=== PATIENT | male | born 1975 | race Two or more races ===

== ENCOUNTER 2021-08-02 03:34 | Inpatient (IN) | payer MEDICAID, OTHER ==
[~2021-08-02] VITALS: Ht 175.3 cm; Wt 88.3 kg
[2021-08-02] MEDS ORDERED: LORazepam 0.5 MG TAB PO ONE (04:45)
[2021-08-02 06:03] LABS: Basophils # (auto) 0.1 10 ^3/uL (0-0.2); Basophils % (auto) 0.8 % (0.0-2.0); Eosinophils # (auto) 0.3 10 ^3/uL (0-0.8); Eosinophils % (auto) 2.6 % (0.0-7.0); Hematocrit 46.4 % (41.0-53.0); Hemoglobin 16.2 g/dL (13.5-17.5); Lymphocytes # (auto) 2.5 10 ^3/uL (0.4-5.4); Lymphocytes % (auto) 21.1 % (10.0-50.0); Mean Corpuscular Hemoglobin 30.6 pg (28.0-32.0); Mean Corpuscular Volume 87.3 fL (80.0-100.0); Monocytes # (auto) 1.2 10 ^3/uL (0-1.3); Monocytes % (auto) 10.7 % (0.0-12.0); Neutrophils # (auto) 7.6 10 ^3/uL (1.6-8.6); Neutrophils % (auto) 64.8 % (37.0-80.0); Red Blood Cells 5.31 10^6/uL (4.5-5.90); Red Cell Distribution Width 14.1 % (11.8-14.3); White Blood Cell 11.7 10^3/uL (4.4-10.8)
[2021-08-02] MEDS ORDERED: ASPirin 81 mg TAB PO ONE ×2 (07:00→08:30)
[2021-08-02 08:00] LABS: Albumin 2.9 g/dL (3.4-5.0); BUN/Creatinine Ratio 12.7; Calcium 8.9 mg/dL (8.5-10.1); Potassium 4.9 mmol/L (3.5-5.1)
[2021-08-02 08:07] LABS: Bilirubin, Total 0.6 mg/dL (0.2-1.0); Total Protein 7.1 g/dL (6.4-8.2)
[2021-08-02] MEDS ORDERED: NITROGLYCERIN 0.4 MG SL TAB SL ONE (09:30)
[2021-08-02] MEDS ORDERED: ACETAMINOPHEN 325 MG TAB PO PRN (11:00)
[2021-08-02] MEDS ORDERED: MORPHINE SULFATE 4 MG/ML SYR/VIAL IV PRN (11:00)
[2021-08-02] MEDS ORDERED: HYDROcodone-ACET 5/325MG TAB PO PRN (11:00)
[2021-08-02] MEDS ORDERED: SODIUM CHLORIDE 0.9% 1,000 ML IV SCH (11:00)
[2021-08-02] MEDS ORDERED: NICOTINE 14 MG/24HR TOPICAL PATCH TD ONE (11:45)
[2021-08-02 12:24] VITALS: BP 124/57
[2021-08-02] MEDS ORDERED: METO25TA93 PO (12:52)
[2021-08-02] MEDS ORDERED: LISI-716 PO (12:52)
[2021-08-02 16:45] VITALS: BP 131/65
[2021-08-02] MEDS: ATORVASTATIN 20 MG TAB PO SCH (21:07)
[2021-08-02] MEDS: CARVEDILOL 3.125 MG TAB PO SCH (21:07)
[2021-08-02 21:53] VITALS: BP 148/90
[2021-08-03 05:00] VITALS: BP 150/94
[2021-08-03 06:19] LABS: Basophils # (auto) 0.1 10 ^3/uL (0-0.2); Basophils % (auto) 0.7 % (0.0-2.0); Eosinophils # (auto) 0.3 10 ^3/uL (0-0.8); Eosinophils % (auto) 2.9 % (0.0-7.0); Hematocrit 50.8 % (41.0-53.0); Hemoglobin 17.1 g/dL (13.5-17.5); Lymphocytes # (auto) 2.4 10 ^3/uL (0.4-5.4); Lymphocytes % (auto) 20.4 % (10.0-50.0); Mean Corpuscular Hemoglobin 29.4 pg (28.0-32.0); Mean Corpuscular Hgb Conc. 33.6 g/dL (32.0-36.0); Mean Corpuscular Volume 87.4 fL (80.0-100.0); Monocytes # (auto) 1.2 10 ^3/uL (0-1.3); Monocytes % (auto) 10.2 % (0.0-12.0); Neutrophils # (auto) 7.8 10 ^3/uL (1.6-8.6); Neutrophils % (auto) 65.8 % (37.0-80.0); Red Blood Cells 5.81 10^6/uL (4.5-5.90); White Blood Cell 11.8 10^3/uL (4.4-10.8)
[2021-08-03 06:39] LABS: Calcium 8.7 mg/dL (8.5-10.1); Potassium 4.6 mmol/L (3.5-5.1)
[2021-08-03 06:45] LABS: Albumin 2.8 g/dL (3.4-5.0); BUN/Creatinine Ratio 10.2; Bilirubin, Total 0.6 mg/dL (0.2-1.0); Total Protein 7.6 g/dL (6.4-8.2)
[2021-08-03 09:00] VITALS: BP 142/100
[2021-08-03] MEDS: ASPirin 81 mg TAB PO SCH (09:49)
[2021-08-03] MEDS: CARVEDILOL 3.125 MG TAB PO SCH (09:49)
[2021-08-03] MEDS: ENOXAPARIN SOD 40 MG/0.4 ML SYRINGE SC SCH (09:52)
[2021-08-03] MEDS ORDERED: LOSARTAN POTASSIUM 25 MG TAB PO SCH (10:00)
[2021-08-03 13:00] VITALS: BP 125/86
[2021-08-03] MEDS ORDERED: FUROSEMIDE 40 MG/4 ML VIAL IV ONE (13:15)
[2021-08-03] MEDS ORDERED: NICOTINE 21MG/24 HR TOPICAL PATCH TD ONE (13:15)
[2021-08-03 17:00] VITALS: BP 128/81
[2021-08-03] MEDS: ATORVASTATIN 20 MG TAB PO SCH (22:25)
[2021-08-03] MEDS: FAMOTIDINE 20 MG TAB PO SCH (22:25)
[2021-08-03] MEDS: CARVEDILOL 12.5 MG TAB PO SCH (22:26)
[2021-08-03 22:55] VITALS: BP 149/96
[2021-08-04 04:53] VITALS: BP 125/87
[2021-08-04 06:45] LABS: Basophils # (auto) 0.1 10 ^3/uL (0-0.2); Basophils % (auto) 1.1 % (0.0-2.0); Eosinophils # (auto) 0.4 10 ^3/uL (0-0.8); Eosinophils % (auto) 3.4 % (0.0-7.0); Hemoglobin 17.6 g/dL (13.5-17.5); Lymphocytes # (auto) 2.3 10 ^3/uL (0.4-5.4); Lymphocytes % (auto) 20.1 % (10.0-50.0); Mean Corpuscular Hemoglobin 29.7 pg (28.0-32.0); Mean Corpuscular Hgb Conc. 34.4 g/dL (32.0-36.0); Mean Corpuscular Volume 86.3 fL (80.0-100.0); Monocytes # (auto) 0.8 10 ^3/uL (0-1.3); Monocytes % (auto) 6.8 % (0.0-12.0); Neutrophils % (auto) 68.6 % (37.0-80.0); Nucleated Red Blood Cells % 0.3 %; Red Blood Cells 5.91 10^6/uL (4.5-5.90); White Blood Cell 11.6 10^3/uL (4.4-10.8)
[2021-08-04 06:55] LABS: INR 1.07 (0.9-1.15)
[2021-08-04 07:00] LABS: Calcium 9.1 mg/dL (8.5-10.1); Magnesium 2.4 mg/dL (1.6-2.6); Potassium 3.6 mmol/L (3.5-5.1)
[2021-08-04 07:34] LABS: BUN/Creatinine Ratio 9.8
[2021-08-04] MEDS: LOSARTAN POTASSIUM 25 MG TAB PO SCH (08:54)
[2021-08-04 09:27] VITALS: BP 130/83
[2021-08-04] MEDS: FUROSEMIDE 40 MG/4 ML VIAL IV SCH (10:00)
[2021-08-04] MEDS: ASPirin 81 mg TAB PO SCH (10:00)
[2021-08-04] MEDS: SPIRONOLACTONE 25 MG TAB PO SCH (10:00)
[2021-08-04] MEDS: FAMOTIDINE 20 MG TAB PO SCH ×2 (10:00→21:55)
[2021-08-04] MEDS ORDERED: LOSARTAN POTASSIUM 25 MG TAB PO SCH (10:00)
[2021-08-04] MEDS: NICOTINE 21MG/24 HR TOPICAL PATCH TD SCH (10:00)
[2021-08-04] MEDS: ENOXAPARIN SOD 40 MG/0.4 ML SYRINGE SC SCH (10:00)
[2021-08-04] MEDS: CARVEDILOL 12.5 MG TAB PO SCH ×2 (10:00→21:54)
[2021-08-04 12:46] VITALS: BP 136/75
[2021-08-04 17:03] VITALS: BP 129/84
[2021-08-04] MEDS: ATORVASTATIN 20 MG TAB PO SCH (21:55)
[2021-08-04 22:00] VITALS: BP 112/67
[2021-08-05 05:00] VITALS: BP 143/81
[2021-08-05 08:00] VITALS: BP 152/88
[2021-08-05] MEDS: FUROSEMIDE 40 MG/4 ML VIAL IV SCH (10:13)
[2021-08-05] MEDS: ASPirin 81 mg TAB PO SCH (10:14)
[2021-08-05] MEDS: SPIRONOLACTONE 25 MG TAB PO SCH (10:14)
[2021-08-05] MEDS: CARVEDILOL 12.5 MG TAB PO SCH (10:16)
[2021-08-05] MEDS: FAMOTIDINE 20 MG TAB PO SCH (10:17)
[2021-08-05] MEDS: LOSARTAN POTASSIUM 25 MG TAB PO SCH (10:17)
[2021-08-05] MEDS: ENOXAPARIN SOD 40 MG/0.4 ML SYRINGE SC SCH (10:18)
[2021-08-05] MEDS: NICOTINE 21MG/24 HR TOPICAL PATCH TD SCH (10:19)
[2021-08-05 13:00] VITALS: BP 126/73
[2021-08-05] MEDS ORDERED: ASPI-378 PO (13:48)
[2021-08-05] MEDS ORDERED: CAR125T PO (13:48)
[2021-08-05] MEDS ORDERED: LOSA25TA38 PO (13:48)
[2021-08-05] MEDS ORDERED: NIC21P TOP (13:48)
[2021-08-05] MEDS ORDERED: ATOR10TA PO (13:48)
[2021-08-05] MEDS ORDERED: POTA1TAB61 PO (13:48)
[2021-08-05] MEDS ORDERED: CHOL20007 PO (13:48)
[2021-08-05] MEDS ORDERED: SPIR25TA PO (13:48)
[2021-08-05] MEDS ORDERED: FURO1TAB31 PO (13:48)
[2021-08-05 14:46] VITALS: BP 135/82
== END 2021-08-05 16:00 | disposition home or self-care (01) | DRG 194 ==
LOC: ER 03:34 → TELE 10:49 → TELE-WESTW 12:27
PROVIDERS: ADMIT Internal Medicine; ATTEND Internal Medicine
DX: I11.0 Hypertensive heart disease with heart failure (principal); I21.A1 Myocardial infarction type 2; R65.10 Systemic inflammatory response syndrome (SIRS) of non-infectious origin without acute organ dysfunction; E87.1 Hypo-osmolality and hyponatremia; I42.7 Cardiomyopathy due to drug and external agent; E88.09 Other disorders of plasma-protein metabolism, not elsewhere classified; I50.23 Acute on chronic systolic (congestive) heart failure; E55.9 Vitamin D deficiency, unspecified; E78.5 Hyperlipidemia, unspecified; Z20.822 Contact with and (suspected) exposure to COVID-19; F14.10 Cocaine abuse, uncomplicated; F15.10 Other stimulant abuse, uncomplicated; F17.200 Nicotine dependence, unspecified, uncomplicated; Z91.19 Patient's noncompliance with other medical treatment and regimen
CPT/HCPCS: 36415; 71045; 80048; 80053; 80061; 82306; 83735; 83880; 84443; 84484; 85025; 85610; 93005; 93306; 96360; 99291; G0378

== ENCOUNTER 2021-08-06 05:27 | Inpatient (IN) | payer MEDICAID ==
[~2021-08-06] VITALS: Ht 175.3 cm; Wt 85.6 kg
[~2021-08-06 05:27] MED LIST: ASPI-378 PO; ATOR10TA PO; CAR125T PO; CHOL20007 PO; FURO1TAB31 PO; LOSA25TA38 PO; NIC21P TOP; POTA1TAB61 PO; SPIR25TA PO
[2021-08-06 06:16] LABS: Basophils # (auto) 0.2 10 ^3/uL (0-0.2); Eosinophils # (auto) 0.3 10 ^3/uL (0-0.8); Lymphocytes # (auto) 2.8 10 ^3/uL (0.4-5.4); Monocytes # (auto) 1.4 10 ^3/uL (0-1.3); Neutrophils # (auto) 11.7 10 ^3/uL (1.6-8.6)
[2021-08-06 06:17] LABS: Basophils % (auto) 1.1 % (0.0-2.0); Eosinophils % (auto) 1.6 % (0.0-7.0); Hemoglobin 18.2 g/dL (13.5-17.5); Mean Corpuscular Hemoglobin 30.2 pg (28.0-32.0); Mean Corpuscular Hgb Conc. 35.1 g/dL (32.0-36.0); Monocytes % (auto) 8.3 % (0.0-12.0); Nucleated Red Blood Cells % 0.1 %; Red Blood Cells 6.04 10^6/uL (4.5-5.90); Red Cell Distribution Width 13.9 % (11.8-14.3); White Blood Cell 16.2 10^3/uL (4.4-10.8)
[2021-08-06 06:37] LABS: Albumin 2.8 g/dL (3.4-5.0); BUN/Creatinine Ratio 19.4; Calcium 9.2 mg/dL (8.5-10.1); Potassium 4.3 mmol/L (3.5-5.1)
[2021-08-06 06:41] LABS: Bilirubin, Total 0.2 mg/dL (0.2-1.0); Total Protein 7.7 g/dL (6.4-8.2)
[2021-08-06 06:41] LABS: Urine WBC None Seen /hpf (0 - 3)
[2021-08-06] MEDS ORDERED: cefTRIAXone 1GM/50ML D5W 50 ML IV ONE (06:45)
[2021-08-06] MEDS ORDERED: NITROGLYCERIN 0.4 MG SL TAB SL ONE (06:45)
[2021-08-06] MEDS ORDERED: ASPirin 81 mg TAB PO ONE (06:45)
[2021-08-06] MEDS ORDERED: SODIUM CHLORIDE 0.9% 1,000 ML IV ONE ×2 (06:45)
[2021-08-06 06:50] LABS: Urine Bacteria NONE SEEN /hpf (None Seen); Urine Blood 2+ /uL (Negative); Urine Hyaline Cast FEW /lpf (0 - 2); Urine Specific Gravity 1.019 (1.001-1.035)
[2021-08-06 07:05] LABS: Amphetamine Screen, Urine NEGATIVE (NEGATIVE); Barbiturate Scree,Urine NEGATIVE (NEGATIVE); Benzodiazephine Screen, Urine NEGATIVE (NEGATIVE); Cocaine Screen, Urine NEGATIVE (NEGATIVE); Opiate Scree,Urine NEGATIVE (NEGATIVE); Phencyclidine Screen, Urine NEGATIVE (NEGATIVE)
[2021-08-06 07:13] LABS: Cannabinoid Screen, Urine POSITIVE (NEGATIVE)
[2021-08-06] MEDS ORDERED: ENOXAPARIN SOD 100 MG/1 ML SYRINGE SC ONE (09:45)
[2021-08-06] MEDS ORDERED: MORPHINE SULFATE INJECTION 2 MG/ML SYRG IV PRN ×2 (10:15→11:15)
[2021-08-06] MEDS ORDERED: NITROGLYCERIN 0.4 MG SL TAB SL PRN (10:15)
[2021-08-06] MEDS ORDERED: IOHEXOL 350 MG/ML 100ML IJ ONE (10:43)
[2021-08-06] MEDS ORDERED: hydrALAZINE HCL 20 MG/ML VL IV PRN (11:15)
[2021-08-06] MEDS ORDERED: FUROSEMIDE 40 MG/4 ML VIAL IV ONE (11:15)
[2021-08-06] MEDS ORDERED: BENAZEPRIL HCL 10 MG TAB PO ONE (11:15)
[2021-08-06] MEDS ORDERED: ACETAMINOPHEN 325 MG TAB PO PRN (11:15)
[2021-08-06] MEDS ORDERED: ATORVASTATIN 20 MG TAB PO ONE (11:15)
[2021-08-06] MEDS ORDERED: ONDANSETRON HCL 4 MG/2 ML VIAL IV PRN (11:15)
[2021-08-06] MEDS ORDERED: NICOTINE 21MG/24 HR TOPICAL PATCH TD ONE (11:15)
[2021-08-06] MEDS ORDERED: LORazepam 0.5 MG TAB PO PRN (11:15)
[2021-08-06] MEDS ORDERED: FAMOTIDINE (10MG/ML) 2ML VL IV ONE (11:15)
[2021-08-06] MEDS ORDERED: METOPROLOL SUCCINATE XL 50 MG TAB PO ONE (11:15)
[2021-08-06] MEDS ORDERED: LACTULOSE 20Gm/30ML SOLN PO PRN (11:15)
[2021-08-06] MEDS ORDERED: DOCUSATE SOD 100 MG CAP PO PRN (11:15)
[2021-08-06] MEDS ORDERED: HYDROcodone-ACET 5/325MG TAB PO PRN (11:15)
[2021-08-06] MEDS ORDERED: HYDROcodone-ACET 5/325MG TAB PO ONE (11:15)
[2021-08-06] MEDS ORDERED: CLINDAMYCIN 600MG IV 50 ML IV ONE (11:15)
[2021-08-06] MEDS ORDERED: IPRATROPIUM BROM 0.5 MG/2.5ML INH SOL NEB ONE (11:15)
[2021-08-06 12:00] VITALS: BP 123/71
[2021-08-06 12:45] LABS: Phosphorus 3.2 mg/dL (2.5-4.90)
[2021-08-06] MEDS: CLINDAMYCIN 600MG IV 50 ML IV SCH ×2 (13:10→21:50)
[2021-08-06 13:27] VITALS: BP 145/88
[2021-08-06 13:30] VITALS: BP 123/73
[2021-08-06] MEDS ORDERED: IPRATROPIUM BROM 0.5 MG/2.5ML INH SOL NEB SCH (14:00)
[2021-08-06 14:07] LABS: INR 1.07 (0.9-1.15); Partial Thromboplastin Time 33.8 sec (23.6-33.0)
[2021-08-06] MEDS: CLOPIDOGREL 300 MG TAB PO ONE ×2 (16:19→16:51)
[2021-08-06 17:00] VITALS: BP 99/34
[2021-08-06] MEDS ORDERED: FUROSEMIDE 40 MG/4 ML VIAL IV SCH (18:00)
[2021-08-06] MEDS: CARVEDILOL 12.5 MG TAB PO SCH (21:51)
[2021-08-06] MEDS ORDERED: ATORVASTATIN 20 MG TAB PO SCH (22:00)
[2021-08-06] MEDS ORDERED: POTASSIUM CHL 20 Meq TABLET PO SCH (22:00)
[2021-08-06] MEDS ORDERED: ENOXAPARIN SOD 100 MG/1 ML SYRINGE SC SCH (22:00)
[2021-08-07] MEDS: CLINDAMYCIN 600MG IV 50 ML IV SCH (03:55)
[2021-08-07 05:00] VITALS: BP 133/92
[2021-08-07 05:38] LABS: Basophils # (auto) 0.1 10 ^3/uL (0-0.2); Basophils % (auto) 0.8 % (0.0-2.0); Eosinophils # (auto) 0.3 10 ^3/uL (0-0.8); Eosinophils % (auto) 2.3 % (0.0-7.0); Hematocrit 49.2 % (41.0-53.0); Hemoglobin 16.7 g/dL (13.5-17.5); Lymphocytes # (auto) 3.8 10 ^3/uL (0.4-5.4); Mean Corpuscular Hemoglobin 29.1 pg (28.0-32.0); Mean Corpuscular Hgb Conc. 33.9 g/dL (32.0-36.0); Mean Corpuscular Volume 85.8 fL (80.0-100.0); Monocytes # (auto) 1.1 10 ^3/uL (0-1.3); Monocytes % (auto) 7.9 % (0.0-12.0); Neutrophils # (auto) 8.6 10 ^3/uL (1.6-8.6); Nucleated Red Blood Cells % 0.3 %; Red Blood Cells 5.73 10^6/uL (4.5-5.90); Red Cell Distribution Width 13.8 % (11.8-14.3); White Blood Cell 13.9 10^3/uL (4.4-10.8)
[2021-08-07 06:06] LABS: INR 1.08 (0.9-1.15); Partial Thromboplastin Time 35.3 sec (23.6-33.0)
[2021-08-07 06:17] LABS: Albumin 2.6 g/dL (3.4-5.0); BUN/Creatinine Ratio 14.2; Bilirubin, Total 0.4 mg/dL (0.2-1.0); CRP High Sensitivity 1.39 mg/dL (< 0.3); Magnesium 2.2 mg/dL (1.6-2.6); Phosphorus 3.5 mg/dL (2.5-4.90); Total Protein 7.8 g/dL (6.4-8.2); Uric Acid 7.8 mg/dL (3.5-7.2)
[2021-08-07 08:58] VITALS: BP 122/88
[2021-08-07] MEDS ORDERED: cefTRIAXone 1GM/50ML D5W 50 ML IV SCH (09:00)
[2021-08-07 09:31] LABS: Potassium 4.2 mmol/L (3.5-5.1)
[2021-08-07] MEDS ORDERED: LIDOCAINE 2%HCL (LOCAL ANESTH.) INJ 10ml MDV ONE (09:39)
[2021-08-07] MEDS ORDERED: IODIXANOL 320MG/ML 100ML BTL IV ONE (09:39)
[2021-08-07] MEDS ORDERED: BENAZEPRIL HCL 10 MG TAB PO SCH (10:00)
[2021-08-07] MEDS ORDERED: LOSARTAN POTASSIUM 25 MG TAB PO SCH (10:00)
[2021-08-07] MEDS ORDERED: METOPROLOL SUCCINATE XL 50 MG TAB PO SCH (10:00)
[2021-08-07] MEDS ORDERED: FAMOTIDINE (10MG/ML) 2ML VL IV SCH (10:00)
[2021-08-07] MEDS ORDERED: CHOLECALCIFEROL (VITD3) 2,000 UNIT CAP/TAB PO SCH (10:00)
[2021-08-07] MEDS ORDERED: ASPirin 81 mg TAB PO SCH (10:00)
[2021-08-07] MEDS ORDERED: NICOTINE 21MG/24 HR TOPICAL PATCH TD SCH (10:00)
[2021-08-07] MEDS ORDERED: ANGIOMAX 250 MG VIAL IV ONE (10:01)
[2021-08-07] MEDS ORDERED: fentaNYL CITRATE 100 MCG/2 ML VL ONE (10:01)
[2021-08-07] MEDS ORDERED: VERAPAMIL 2.5MG/ML INJ 2ML VIAL IV ONE (10:01)
[2021-08-07] MEDS ORDERED: HEPARIN SODIUM (PORCINE) 5000 UNITS/ML 1ML VIAL ONE ×2 (10:01→10:30)
[2021-08-07] MEDS ORDERED: SODIUM CHL 0.9% 0 ML ONE (10:02)
[2021-08-07] MEDS ORDERED: MIDAZOLAM HCL 2MG/2ML 2ml VIAL (1mg/ml) ONE (10:02)
[2021-08-07] MEDS ORDERED: HEPARIN DRIP/D5W 100UNITS/ML 250 ML IV ONE (10:31)
[2021-08-07] MEDS ORDERED: HEPARIN DRIP/D5W 100UNITS/ML 250 ML IV SCH (10:45)
[2021-08-07 11:25] LABS: Basophils # (auto) 0.2 10 ^3/uL (0-0.2); Basophils % (auto) 1.3 % (0.0-2.0); Eosinophils # (auto) 0.2 10 ^3/uL (0-0.8); Hematocrit 50.5 % (41.0-53.0); Lymphocytes # (auto) 3.4 10 ^3/uL (0.4-5.4); Lymphocytes % (auto) 27.7 % (10.0-50.0); Mean Corpuscular Hemoglobin 29.2 pg (28.0-32.0); Mean Corpuscular Hgb Conc. 33.6 g/dL (32.0-36.0); Mean Corpuscular Volume 86.7 fL (80.0-100.0); Monocytes % (auto) 7.8 % (0.0-12.0); Neutrophils # (auto) 7.6 10 ^3/uL (1.6-8.6); Neutrophils % (auto) 61.2 % (37.0-80.0); Nucleated Red Blood Cells % 0.2 %; Red Blood Cells 5.82 10^6/uL (4.5-5.90); Red Cell Distribution Width 13.4 % (11.8-14.3); White Blood Cell 12.4 10^3/uL (4.4-10.8)
[2021-08-07 11:57] LABS: INR 1.21 (0.9-1.15)
[2021-08-07 12:11] LABS: Partial Thromboplastin Time > 139.0 sec (23.6-33.0)
[2021-08-07] MEDS: CARVEDILOL 12.5 MG TAB PO SCH (12:29)
[2021-08-07 16:59] VITALS: BP 113/74
== END 2021-08-07 18:47 | disposition short-term general hospital (02) | DRG 190 ==
LOC: ER 05:27 → TELE 10:07 → TELE-EAST 11:59
PROVIDERS: ADMIT Hospitalist; ATTEND Internal Medicine
PROC: 4A023N7 Measurement of Cardiac Sampling and Pressure, Left Heart, Percutaneous Approach (ICD-10-PCS; principal; 2021-08-07)
PROC: B211YZZ Fluoroscopy of Multiple Coronary Arteries using Other Contrast (ICD-10-PCS; 2021-08-07)
PROC: B215YZZ Fluoroscopy of Left Heart using Other Contrast (ICD-10-PCS; 2021-08-07)
DX: I21.4 Non-ST elevation (NSTEMI) myocardial infarction (principal); I50.23 Acute on chronic systolic (congestive) heart failure; I27.20 Pulmonary hypertension, unspecified; I42.7 Cardiomyopathy due to drug and external agent; R65.10 Systemic inflammatory response syndrome (SIRS) of non-infectious origin without acute organ dysfunction; E88.09 Other disorders of plasma-protein metabolism, not elsewhere classified; I50.82 Biventricular heart failure; I11.0 Hypertensive heart disease with heart failure; E86.0 Dehydration; D75.1 Secondary polycythemia; E78.5 Hyperlipidemia, unspecified; E55.9 Vitamin D deficiency, unspecified; F19.10 Other psychoactive substance abuse, uncomplicated; Z20.822 Contact with and (suspected) exposure to COVID-19; I25.10 Atherosclerotic heart disease of native coronary artery without angina pectoris; F15.90 Other stimulant use, unspecified, uncomplicated; F17.210 Nicotine dependence, cigarettes, uncomplicated; Z79.82 Long term (current) use of aspirin; Z79.899 Other long term (current) drug therapy; Z82.49 Family history of ischemic heart disease and other diseases of the circulatory system; Z91.19 Patient's noncompliance with other medical treatment and regimen
CPT/HCPCS: 36415; 71045; 71275; 80053; 80061; 80307; 81001; 82550; 82728; 83036; 83615; 83690; 83735; 83880; 84100; 84443; 84484; 84550; 85025; 85379; 85610; 85652; 85730; 86141; 86850; 86900; 86901; 87040; 87086; 93005; 93458; 93970; 96365; 96372; 96375; 99152; 99291; G0378; J0696; J2001; J2250; J3490; Q9967